=== PATIENT | female | born 1995 | race Caucasian/White ===

== ENCOUNTER → 2024-01-02 12:42 | Outpatient (REF) | payer BC, SELFPAY | LOC: HWRAD 12:42 | PROVIDERS: ATTENDING PHYSICIAN Internal Medicine; FAMILY PHYSICIAN Family Medicine | DX: N28.89 Other specified disorders of kidney and ureter (principal) | CPT/HCPCS: 76775 ==

== ENCOUNTER → 2024-07-27 11:27 | Outpatient (REF) | payer BC, SELFPAY | LOC: PNTC 11:27 | PROVIDERS: ATTENDING PHYSICIAN Obstetrics & Gynecology | DX: Z36.0 Encounter for antenatal screening for chromosomal anomalies (principal); Z36.82 Encounter for antenatal screening for nuchal translucency | CPT/HCPCS: 76801; 76813 ==

== ENCOUNTER → 2024-08-24 10:19 | Outpatient (REF) | payer BC, SELFPAY | LOC: PNTC 10:19 | PROVIDERS: ATTENDING PHYSICIAN Obstetrics & Gynecology | DX: O99.210 Obesity complicating pregnancy, unspecified trimester (principal); O35.8XX0 Maternal care for other (suspected) fetal abnormality and damage, not applicable or unspecified; O99.320 Drug use complicating pregnancy, unspecified trimester | CPT/HCPCS: 76805 ==

== ENCOUNTER → 2024-09-22 15:36 | Outpatient (REF) | payer BC, SELFPAY | LOC: PNTC 15:36 | PROVIDERS: ATTENDING PHYSICIAN Obstetrics & Gynecology | DX: O35.8XX0 Maternal care for other (suspected) fetal abnormality and damage, not applicable or unspecified (principal); O99.210 Obesity complicating pregnancy, unspecified trimester | CPT/HCPCS: 76811; 76817 ==

== ENCOUNTER → 2024-12-28 10:57 | Outpatient (REF) | payer BC, SELFPAY | LOC: PNTC 10:57 | PROVIDERS: ATTENDING PHYSICIAN Obstetrics & Gynecology | DX: O99.213 Obesity complicating pregnancy, third trimester (principal); O99.323 Drug use complicating pregnancy, third trimester; O36.8331 Maternal care for abnormalities of the fetal heart rate or rhythm, third trimester, fetus 1 | CPT/HCPCS: 76818 ==

== ENCOUNTER → 2024-12-29 14:11 | Outpatient (REF) | payer BC, SELFPAY | LOC: PNTC 14:11 | PROVIDERS: ATTENDING PHYSICIAN Obstetrics & Gynecology | DX: O36.8330 Maternal care for abnormalities of the fetal heart rate or rhythm, third trimester, not applicable or unspecified (principal); O99.213 Obesity complicating pregnancy, third trimester; O99.323 Drug use complicating pregnancy, third trimester | CPT/HCPCS: 59025 ==

== ENCOUNTER → 2025-01-04 08:28 | Outpatient (REF) | payer BC, SELFPAY | LOC: PNTC 08:28 | PROVIDERS: ATTENDING PHYSICIAN Obstetrics & Gynecology | DX: O99.213 Obesity complicating pregnancy, third trimester (principal); O99.323 Drug use complicating pregnancy, third trimester; O36.8331 Maternal care for abnormalities of the fetal heart rate or rhythm, third trimester, fetus 1 | CPT/HCPCS: 59025; 76815 ==

== ENCOUNTER → 2025-01-11 13:38 | Outpatient (REF) | payer BC, SELFPAY | LOC: PNTC 13:38 | PROVIDERS: ATTENDING PHYSICIAN Obstetrics & Gynecology | DX: O99.213 Obesity complicating pregnancy, third trimester (principal); O35.5XX0 Maternal care for (suspected) damage to fetus by drugs, not applicable or unspecified | CPT/HCPCS: 59025; 76816 ==

== ENCOUNTER → 2025-01-18 08:34 | Outpatient (REF) | payer BC, SELFPAY | LOC: PNTC 08:34 | PROVIDERS: ATTENDING PHYSICIAN Obstetrics & Gynecology | DX: O36.8330 Maternal care for abnormalities of the fetal heart rate or rhythm, third trimester, not applicable or unspecified (principal); O99.213 Obesity complicating pregnancy, third trimester; O35.5XX0 Maternal care for (suspected) damage to fetus by drugs, not applicable or unspecified; O36.8130 Decreased fetal movements, third trimester, not applicable or unspecified | CPT/HCPCS: 59025; 76818 ==

== ENCOUNTER → 2025-01-25 08:42 | Outpatient (REF) | payer BC, SELFPAY | LOC: PNTC 08:42 | PROVIDERS: ATTENDING PHYSICIAN Obstetrics & Gynecology | DX: O36.8330 Maternal care for abnormalities of the fetal heart rate or rhythm, third trimester, not applicable or unspecified (principal); O35.5XX0 Maternal care for (suspected) damage to fetus by drugs, not applicable or unspecified; O99.213 Obesity complicating pregnancy, third trimester | CPT/HCPCS: 59025; 76818 ==

== ENCOUNTER → 2025-02-01 08:41 | Outpatient (REF) | payer BC, SELFPAY | LOC: PNTC 08:41 | PROVIDERS: ATTENDING PHYSICIAN Obstetrics & Gynecology | DX: O36.8330 Maternal care for abnormalities of the fetal heart rate or rhythm, third trimester, not applicable or unspecified (principal); O35.5XX0 Maternal care for (suspected) damage to fetus by drugs, not applicable or unspecified; O99.213 Obesity complicating pregnancy, third trimester | CPT/HCPCS: 59025; 76818 ==

== ENCOUNTER 2025-02-07 21:59 | Inpatient (IN) | payer BC, SELFPAY ==
[2025-02-07 22:06] VITALS: BMI 35.9
[2025-02-07 22:16] VITALS: BP 133/85
[2025-02-07 23:13] LABS: Hematocrit 37.7 % (37.0-47.0); Hemoglobin 12.7 g/dL (12.0-16.0); Mean Corp Hgb Conc. 33.7 g/dL (33.0-37.0); Mean Corpuscular Volume 79.7 fL (81.0-99.0); Nucleated Red Blood Cells % 0 %; Platelet Count 390 10^3/uL (130-400); Red Cell Dist. Width 14.1 % (11.5-14.5)
[2025-02-07] MEDS: PROZAC 40 MG PO (23:15)
[2025-02-07] MEDS: WELLBUTRIN XL (24 hour extended release) 150 MG PO (23:18)
[2025-02-08] MEDS: PITOCIN 30 UNITS/NSS 500 ML IV (00:28)
[2025-02-08] MEDS: LR 1000 IV (00:28)
[2025-02-08] MEDS: STADOL 1 MG IV (02:05)
[2025-02-08 04:47] LABS: Cord ABG Comment CORD BLOOD
[2025-02-08 04:52] LABS: B.E. Cord ABG -9.5 mMOL/L; HCO3 Cord ABG 19.7 mmol/L; O2 Saturation % Cord ABG 40.6 %; PCO2 Cord ABG 54 mmHg; PO2 Cord ABG 25 mmHg; pH Cord ABG 7.17
[2025-02-08 04:55] LABS: B.E. Cord ABG -8.9 mMOL/L; HCO3 Cord ABG 19.5 mmol/L; O2 Saturation % Cord ABG 44.3 %; PCO2 Cord ABG 50 mmHg; PO2 Cord ABG 26 mmHg; pH Cord ABG 7.20
--- NOTE | 2025-02-08 06:07 | HPS.HSE ---
Family Physician
-
Family Physician: INTERVIEWE UNKNOWN - PT NOT
Chief Complaint
-
stat
History of Present Illness
Elva is a 29 yo at 39w6d (EDD104/11/24) presenting for painful uterine contractions. She endorses regular painful contractions. Denies DFM, ROM and VB.
Medical History
Past Medical History
Past Medical History: Reports Psychiatric
Past Surgical History: Reports None
Social History
Tobacco: Non-smoker
Alcohol: None
Drug: None
Family History
Family History: Not pertinent
Allergies / Home Medications
Allergies reflects when Allergies were last updated in [facility] [facility].
Home Medications with original date entered in [facility] [employer] [facility]
Allergy/Medication List:
PCN and Nitrofurantoin
Review of Systems
-
History Source: Patient
A 12 point ROS was completed and negative except as noted: Yes
Physical Exam
Vital Signs
Vital Signs
Temp Pulse Resp BP
97.9 F 88 18 133/85
02/07/25 22:16 02/07/25 22:16 02/07/25 22:16 02/07/25 22:16
Physical Exam
General: No Apparent Distress and Comfortable; No Appears in Distress
Respiratory: Non Labored Respirations; No Accessory Resp Muscle Use
Cardiac: No Peripheral Edema or Calf Tenderness
GI: Other (Gravid)
Genito-urinary: No Vaginal Bleeding
Skin: Warm and Dry
Neuro: AO x 3
Laboratory Results
-
Hgb 12.7, Plt 39; B pos, antibody neg
Data Reviewed
-
Ultrasound: Report Reviewed by me
Lab Data: Labs Reviewed by me
Impression/Plan
-
IMPRESSION:
29 yo now 40w0d now requiring stat for bradycardia
PLAN:
Admit
Neto for surgical ppx
Anticipate D/C POD#3.
[2025-02-08] MEDS: COLACE 100 MG PO ×2 (07:51→20:05)
[2025-02-08] MEDS: TORADOL 15 MG IV ×3 (07:51→20:05)
--- NOTE | 2025-02-08 08:16 | W.PN.ANS.POP ---
Anesthesia Post Operative
- Anesthesia Post Op Note
Vital Signs Stable-See Nursing Note: Yes
Airway Patent: Yes
Adequate Pain Control: Yes
Change in Mental Status: No
Current Postoperative Nausea & Vomiting: No
Anesthesia Complications: No
General Anesthetic Recall: No
Unplanned Admission: No
Post Op Hydration Adequate: Yes
- -
Pride still intact but eating and drinking without difficulty.Pain controlled
[2025-02-08] MEDS: ZOFRAN 4 MG IV (15:56)
[2025-02-08] MEDS: TYLENOL 650 MG PO (20:34)
[2025-02-08] MEDS: PROZAC 40 MG PO (21:52)
[2025-02-08] MEDS: WELLBUTRIN XL (24 hour extended release) 150 MG PO (21:52)
[2025-02-09] MEDS: TORADOL 15 MG IV (02:00)
[2025-02-09 06:23] LABS: Hematocrit 33.6 % (37.0-47.0); Hemoglobin 10.9 g/dL (12.0-16.0); Mean Corp Hgb Conc. 32.4 g/dL (33.0-37.0); Mean Corpuscular Volume 83.4 fL (81.0-99.0); Platelet Count 352 10^3/uL (130-400); Red Cell Dist. Width 14.2 % (11.5-14.5)
[2025-02-09] MEDS: MOTRIN 600 MG PO ×3 (08:42→20:45)
[2025-02-09] MEDS: COLACE 100 MG PO ×2 (08:44→20:23)
[2025-02-09] MEDS: MYLICON 80 MG PO (08:44)
[2025-02-09] MEDS: TYLENOL 650 MG PO ×3 (08:44→20:45)
[2025-02-09] MEDS: ROXICODONE 5 MG PO (18:02)
[2025-02-09] MEDS: PROZAC 40 MG PO (21:57)
[2025-02-09] MEDS: WELLBUTRIN XL (24 hour extended release) 150 MG PO (21:57)
[2025-02-10] MEDS: MOTRIN 600 MG PO ×3 (04:10→23:39)
[2025-02-10] MEDS: TYLENOL 650 MG PO ×3 (04:11→20:33)
[2025-02-10] MEDS: COLACE 100 MG PO ×2 (08:24→20:33)
[2025-02-10] MEDS: ROXICODONE 5 MG PO ×3 (10:57→20:33)
[2025-02-10] MEDS: WELLBUTRIN XL (24 hour extended release) 150 MG PO (23:39)
[2025-02-10] MEDS: PROZAC 40 MG PO (23:39)
[2025-02-11] MEDS: TYLENOL 650 MG PO (02:19)
[2025-02-11] MEDS: MOTRIN 600 MG PO (06:17)
[2025-02-11] MEDS: COLACE 100 MG PO (08:00)
[2025-02-11] MEDS: ROXICODONE 5 MG PO (10:32)
[2025-02-11 16:10] LABS: Syphilis/T. pallidum Ab Reflex Negative (Negative)
--- NOTE | 2025-02-11 18:12 | W.DCSUMMARY ---
Discharge Summary
Discharge Data
Date of Admission: 02/07/25
Date of Discharge: 02/11/25
-
Pending Results: No
Hospital Course
Patient is a 29yo who presented to Labor and Delivery on 02/07 at 39.6 weeks with complaints of contractions. She was 3-4/80/-2 on admission. Around 0045, she was started on Pitocin and she got an epidural around 0330. She had a deceleration to
the 60s x14 minutes. Pitocin was turned off and patient was repositioned without resolution. She was 6-7/100/-1 and artificial rupture of membranes was performed and FSE placed confirming heart tones. Stat section was called.
heart tones improved to 140s, but decision was made to proceed with section secondary to prolonged bradycardia. She underwent primary low transverse section on 02/08, delivering a viable male . The procedure was
uncomplicated. The qualitative blood loss was 300cc. On postop day one, she was complaining of nausea and emesis. Her hemoglobin was 10.9. On postop day two, she was complaining of suprapubic pain with urination but no dysuria. On postop day three,
she was doing well with no complaints. She was meeting all postop milestones. She was tolerating a regular diet, voiding spontaneously and had no heavy lochia. She was discharged home after discharge instructions and return precautions were
reviewed. She was instructed to follow up in 2 weeks for an incision check.
Discharge Plan
-
Patient Disposition: Home (Routine Discharge)
Discharge Diagnosis/Procedures: primary low transverse section, non-reassuring heart tones
Condition: Good
Diet: No restrictions
Activity: No strenuous activity
Driving Restrictions: No driving for 2 weeks
Bathing Restrictions: OK to Shower
Stand Alone Forms: LDRP Vaginal Delivery
Referrals:
Sarah Villa MD [Active, Gynecology] - in two weeks
UNKNOWN - PT NOT,INTERVIEWE [Family Provider]
Prescriptions:
New
acetaminophen 325 mg Tablet
650 mg PO Q4HPRN PRN (Reason: mild pain) Qty: 1 0RF
ibuprofen 600 mg Tablet
600 mg PO Q6HPRN PRN (Reason: cramps) Qty: 60 0RF
oxycodone 5 mg Tablet
5 mg PO Q4HPRN PRN (Reason: moderate pain) Qty: 5 0RF
Continued
Prozac:
40 mg PO HS
Flonase Nasal [place]:
2 sprays intranasal DAILY
prenat.vits,doug,ozm-updx-lorow Tablet
1 tab PO DAILY
dextroamphetamine-amphetamine [Adderall] 10 mg Tablet
10 mg PO BID
bupropion HCl [Wellbutrin XL] 150 mg Tablet Extended Release 24 Hr
150 mg PO DAILY
Discontinued
aspirin [Aspirin Low-Strength] 81 mg Tablet,Chewable
81 mg PO DAILY
Discharge Orders:
Discharge Patient (As Directed); Ordered 02/11/25
Ordered By: Lyric Hall
Discharge Date and Time
Discharge Date/Time: 02/11/25 11:59
Print Language: UKRAINIAN
== END 2025-02-11 11:59 | disposition home or self-care (01) | DRG 788 ==
LOC: LDRP 21:59
PROVIDERS: ADMITTING PHYSICIAN Obstetrics & Gynecology
PROC: 10D00Z1 Extraction of Products of Conception, Low, Open Approach (ICD-10-PCS; 2025-02-08)
DX: O69.82X0 Labor and delivery complicated by other cord entanglement, without compression, not applicable or unspecified (principal); O76 Abnormality in fetal heart rate and rhythm complicating labor and delivery; O77.0 Labor and delivery complicated by meconium in amniotic fluid; Z3A.39 39 weeks gestation of pregnancy; Z37.0 Single live birth; N83.8 Other noninflammatory disorders of ovary, fallopian tube and broad ligament; O34.83 Maternal care for other abnormalities of pelvic organs, third trimester
CPT/HCPCS: 36415; 82803; 85025; 85027; 86780; 86850; 86900; 86901; 88307